=== PATIENT | male | born 1980 | race Caucasian/White ===

== ENCOUNTER 2017-06-27 07:10 | Day surgery (SDC) | payer OTHER ==
[2017-06-22 10:08] VITALS: BMI 22.0
[~2017-06-27 07:10] MED LIST: DEXAMETHASONE SOD PHOSPHATE 10 MG/ML 1 ML VIAL IV ONE; HEPARIN SODIUM,PORCINE 5,000 UNIT/ML 1 ML VIAL SQ ONE; HYDROmorphone 0.5 MG/0.5 ML SYRINGE IVP PRN; LACTATED RINGERS 1,000 ML IV SCH; LIDOCAINE 1% 20 ML VIAL (10MG/ML) FOR IV START INTRADERMA PRN; Pre Op ABX Message 1 EACH MISC MISCELLANE ONE
[2017-06-27] MEDS ORDERED: LIDOCAINE 1% 20 ML VIAL (10MG/ML) FOR IV START INTRADERMA ONE (08:32)
[2017-06-27] MEDS ORDERED: ONDANSETRON 4 MG/2 ML VIAL IVP ONE (08:35)
[2017-06-27] MEDS ORDERED: PROPOFOL 10 MG/ML 20 ML VIAL IV ONE (09:38)
[2017-06-27] MEDS ORDERED: LIDOCAINE 1% INJ 10MG/ML (20 ML MDV) ONE (09:38)
[2017-06-27] MEDS ORDERED: fentaNYL (PF) 50 MCG/ML 2 ML AMP ONE (09:38)
[2017-06-27] MEDS ORDERED: BUPIVACAINE (PF) 0.25% 30 ML VIAL SQ ONE ×2 (09:55)
[2017-06-27] MEDS ORDERED: NALOXONE 0.4 MG/ML 1 ML VIAL IV PRN (10:20)
[2017-06-27] MEDS ORDERED: traMADol 50 MG TAB PO PRN (10:20)
--- NOTE | 2017-06-27 10:23 | P.OP ---
Date of Procedure: 06/27/17 Procedure(s) Performed: PREOPERATIVE DIAGNOSIS: Back lipoma POSTOPERATIVE DIAGNOSIS: Same PROCEDURE: Excision back lipoma SURGEON: Rolf EBL: Minimal ANESTHESIA: General COMPLICATIONS: None OPERATIVE PROCEDURE: Patient was placed under general anesthesia and then placed in the right decubitus position. A horizontal incision was made in the left paraspinal location overlying the palpable mass. Dissection through the subcutaneous tissues took place using electrocautery. The lipomatous mass was identified and fully excised with the use of blunt dissection and cautery. This measured 5 x 4 cm in size. Subcutaneous tissues were then closed using 3- 0 Vicryl sutures and the skin using 4-0 Monocryl sutures. Steri-Strips and sterile dressings were applied. DISPOSITION: Stable to recovery room
[2017-06-27 10:30] VITALS: TEMP 97.8
[2017-06-27 12:07] VITALS: BP 109/66; PULSE 49; RESP 18
== END 2017-06-27 12:40 | disposition home or self-care (01) ==
LOC: OR 07:10
PROVIDERS: ATTEND Surgery
DX: D17.1 Benign lipomatous neoplasm of skin and subcutaneous tissue of trunk (principal); M79.89 Other specified soft tissue disorders; F17.200 Nicotine dependence, unspecified, uncomplicated; Z79.899 Other long term (current) drug therapy; Z79.2 Long term (current) use of antibiotics
CPT/HCPCS: 88304; 21931; J1644; J1100; J2405; J2001; J3010; J2704

== ENCOUNTER 2017-12-08 21:12 | Emergency (ER) | payer OTHER ==
[2017-12-08 21:26] VITALS: BP 131/93; PULSE 73; RESP 16; TEMP 98.6
--- NOTE | 2017-12-08 22:07 | ED ---
General Adult HPI - General Chief complaint: Dental/Oral Stated complaint: dental pain Time Seen by Provider: 12/08/17 21:48 Source: patient Mode of arrival: ambulatory Limitations: no limitations - History of Present Illness Initial comments: 37-year-old male presents to the emergency department for chief complaint of tooth pain. Patient states the pain has been going on for about 4 hours. He states when he was at home it was shooting into his ear. Patient states he has had pain like this before on the other side. He last went to [facility] when this happened. Patient states the pain is better right at this moment. Patient denies any stiffness or soreness of the neck. Patient denies sore throat. No shortness of breath or chest pain. Patient denies fevers or chills. He states he does not notice swelling in his cheek. - Related Data Home Medications Medication Instructions Recorded Confirmed Amoxicillin 500 mg PO Q8H 06/22/17 06/27/17 Varenicline [Chantix] 1 mg PO BID 06/22/17 06/27/17 Previous Rx's Medication Instructions Recorded traMADol HCl [Ultram] 50 mg PO Q6H PRN #30 tab 06/27/17 Ibuprofen 600 mg PO Q6H PRN #30 tablet 12/08/17 Penicillin V Potassium [Pen Vee K] 500 mg PO Q6H 10 Days tablet 12/08/17 Allergies Allergy/AdvReac Type Severity Reaction Status Date / Time No Known Allergies Allergy Verified 12/08/17 21:26 Review of Systems ROS Statement: Those systems with pertinent positive or pertinent negative responses have been documented in the HPI. ROS Other: All systems not noted in ROS Statement are negative. Past Medical History Past Medical History: No Reported History Additional Past Medical History / Comment(s): placed on antibiotics for tooth pain to f/u with dentist History of Any Multi-Drug Resistant Organisms: None Reported Past Surgical History: No Surgical Hx Reported Past Anesthesia/Blood Transfusion Reactions: No Reported Reaction Additional Past Anesthesia/Blood Transfusion Reaction / Comment(s): no previous anesthesia Past Psychological History: No Psychological Hx Reported Smoking Status: Current every day smoker - Past Family History Mother Family Medical History: Unable to Obtain Additional Family Medical History / Comment(s): pt is adopted General Exam Limitations: no limitations Head exam: Present: atraumatic, normocephalic, normal inspection ENT exam: Present: mucous membranes moist, TM's normal bilaterally, normal external ear exam. Absent: normal oropharynx (Patient has poor dental hygiene. Tapping the teeth 3 through 5 illicit pain. No abscess is noted.) Neck exam: Present: normal inspection. Absent: tenderness, meningismus, lymphadenopathy Respiratory exam: Present: normal lung sounds bilaterally. Absent: respiratory distress, wheezes, rales, rhonchi, stridor Cardiovascular Exam: Present: regular rate, normal rhythm, normal heart sounds. Absent: systolic murmur, diastolic murmur, rubs, gallop, clicks Course Vital Signs 12/08/17 21:23 Temperature 98.6 F Pulse Rate 73 Respiratory 16 Rate Blood Pressure 131/93 O2 Sat by Pulse 99 Oximetry Medical Decision Making - Medical Decision Making 37-year-old male presents to the emergency department for right side tooth pain for the past 4 hours. Patient has had similar pain on the opposite side of the mouth before was seen at [facility] for a period. Exam shows that tapping of the teeth 3 through 5 illicit pain. Patient describes the pain as a sharp shooting pain that is irritated by high and cold liquids. He says the pain is actually a lot better now than when he came to the emergency department. Patient states he does not want narcotics and would rather stick with ibuprofen. Patient states he is aware of [facility] but would rather go to [facility]. He is recommended to follow up there within 1-2 days. He is advised to take his course of antibiotics as directed. He asked if I could prescribe ibuprofen because his insurance will cover the prescription and he doesn't have any at home. He doesn't have the funds to purchase ibuprofen at the moment he states. He will return to the emergency Department if pain worsens or if he notices the infection spreading. Disposition Clinical Impression: Tooth pain Disposition: HOME SELF-CARE Condition: Good Instructions: Dental Abscess (ED), Toothache (ED) Additional Instructions: Please follow up with a dentist in 1 to 2 days. Please take entire course of antibiotics as directed. Please use ibuprofen for pain relief as needed. If symptoms worsen or you notice the infection spreading please return to the emergency department. Prescriptions: Ibuprofen 600 mg PO Q6H PRN #30 tablet PRN Reason: Pain Penicillin V Potassium [Pen Vee K] 500 mg PO Q6H 10 Days tablet Referrals: Goran Rodriguez MD [Primary Care Provider] - 1-2 days Time of Disposition: 22:03
== END 2017-12-08 22:12 | disposition home or self-care (01) ==
LOC: EC 21:12
DX: K08.89 Other specified disorders of teeth and supporting structures (principal); F17.200 Nicotine dependence, unspecified, uncomplicated; Z79.899 Other long term (current) drug therapy
CPT/HCPCS: 99282

== ENCOUNTER 2025-01-20 06:51 | Emergency (ER) | payer OTHER, BC ==
[2025-01-20 06:59] VITALS: RESP 18
--- NOTE | 2025-01-20 07:14 | ED ---
Abdominal Pain HPI - General Chief Complaint: Abdominal Pain Stated Complaint: abd pain Time Seen by Provider: 01/20/25 06:54 Source: patient, RN notes reviewed Mode of arrival: ambulatory - History of Present Illness Initial Comments: 44-year-old male presents emergency department with chief complaint of bilateral flank pain, urinary issues. Patient states he has some achy discomfort bilateral flank regions states that he noticed last night that his urine was much trickling usual states it is persistently foamy, something like he is never had before he denies any dysuria denies any penile drainage no fevers or chills no blood in his urine noted. Patient offers no complaints. - Related Data Home Medications Medication Instructions Recorded Confirmed Amoxicillin 500 mg PO Q8H 06/22/17 06/27/17 Varenicline [Chantix] 1 mg PO BID 06/22/17 06/27/17 Previous Rx's Medication Instructions Recorded traMADol HCl [Ultram] 50 mg PO Q6H PRN #30 tab 06/27/17 Ibuprofen 600 mg PO Q6H PRN #30 tablet 12/08/17 Penicillin V Potassium [Pen Vee K] 500 mg PO Q6H 10 Days tablet 12/08/17 Allergies Allergy/AdvReac Type Severity Reaction Status Date / Time No Known Allergies Allergy Verified 01/20/25 06:59 Review of Systems ROS Statement: Those systems with pertinent positive or pertinent negative responses have been documented in the HPI. ROS Other: All systems not noted in ROS Statement are negative. Past Medical History Past Medical History: No Reported History Additional Past Medical History / Comment(s): placed on antibiotics for tooth pain to f/u with dentist History of Any Multi-Drug Resistant Organisms: None Reported Past Surgical History: No Surgical Hx Reported Past Anesthesia/Blood Transfusion Reactions: No Reported Reaction Additional Past Anesthesia/Blood Transfusion Reaction / Comment(s): no previous anesthesia Past Psychological History: No Psychological Hx Reported Past Alcohol Use History: Rare Past Drug Use History: None Reported - Past Family History Mother Family Medical History: Unable to Obtain Additional Family Medical History / Comment(s): pt is adopted General Exam Limitations: no limitations General appearance: alert, in no apparent distress Head exam: Present: atraumatic, normocephalic, normal inspection Eye exam: Present: normal appearance, PERRL, EOMI. Absent: scleral icterus, conjunctival injection, periorbital swelling ENT exam: Present: normal exam, normal oropharynx, mucous membranes moist Neck exam: Present: normal inspection, full ROM. Absent: tenderness, meningismus, lymphadenopathy Respiratory exam: Present: normal lung sounds bilaterally. Absent: respiratory distress, wheezes, rales, rhonchi, stridor Cardiovascular Exam: Present: regular rate, normal rhythm, normal heart sounds. Absent: systolic murmur, diastolic murmur, rubs, gallop, clicks GI/Abdominal exam: Present: soft, normal bowel sounds. Absent: distended, tenderness, guarding, rebound, rigid Back exam: Absent: CVA tenderness (R), CVA tenderness (L) Course Vital Signs 01/20/25 06:54 Temperature 97.9 F Pulse Rate 65 Respiratory 18 Rate Blood Pressure 139/87 O2 Sat by Pulse 98 Oximetry Medical Decision Making - Medical Decision Making Was pt. sent in by a medical professional or institution (, PA, SENIOR JAVA WEB APPLICATION DEVELOPER, urgent care, hospital, or fpc...) When possible be specific @ -No Did you speak to anyone other than the patient for history (EMS, parent, family, police, friend...)? What history was obtained from this source @ -No Did you review nursing and triage notes (agree or disagree)? Why? @ -I reviewed and agree with nursing and triage notes Were old charts reviewed (outside hosp., previous admission, EMS record, old EKG, old radiological studies, urgent care reports/EKG's, fpc records)? Report findings @ -No old charts were reviewed Differential Diagnosis (chest pain, altered mental status, abdominal pain women, abdominal pain men, vaginal bleeding, weakness, fever, dyspnea, syncope, headache, dizziness, GI bleed, back pain, seizure, CVA, palpatations, mental health, musculoskeletal)? @Differential Abdominal Pain Men: Appendicitis, cholecystitis, diverticulosis, ischemic bowel, pancreatitis, hepatitis, UTI, gastroenteritis, AAA, incarcerated hernia, bowel obstruction, constipation, inflammatory bowel, hepatitis, peptic ulcer disease, splenic infarction, perforated viscus, testicular torsion, this is not meant to be an al l-inclusive list EKG interpreted by me (3pts min.). @ -None X-rays interpreted by me (1pt min.). @ -None done CT interpreted by me (1pt min.). @ -CT of the abdomen pelvis showing no evidence renal mass, bladder mass, renal stone or ureteral calculi U/S interpreted by me (1pt. min.). @ -None done What testing was considered but not performed or refused? (CT, X-rays, U/S, labs)? Why? @ -None What meds were considered but not given or refused? Why? @ -None Did you discuss the management of the patient with other professionals (professionals i.e. Dr., PA, SENIOR JAVA WE[employer] APPLICATION DEVELOPER, lab, RT, psych nurse, social security specialist, database reporting consultant, teacher, chief accounting officer, case management coordinator)? Give summary @ -No Was smoking cessation discussed for >3mins.? @ -No Was critical care preformed (if so, how long)? @ -No Were there social determinants of health that impacted care today? How? (Homelessness, low income, unemployed, alcoholism, drug addiction, transportation, low edu. Level, literacy, decrease access to med. care, group home, rehab)? @ -No Was there de-escalation of care discussed even if they declined (Discuss DNR or withdrawal of care, Hospice)? DNR status @ -No What co-morbidities impacted this encounter? (DM, HTN, Smoking, COPD, CAD, Cancer, CVA, ARF, Chemo, Hep., AIDS, mental health diagnosis, sleep apnea, morbid obesity)? @ -None Was patient admitted / discharged? Hospital course, mention meds given and route, prescriptions, significant lab abnormalities, going to OR and other pertinent info. @ -Charged patient presented for flank pain, change in urination patient did have notable hematuria on urinalysis CT was unremarkable. Patient will be discharged in stable condition follow-up with urology return presents Undiagnosed new problem with uncertain prognosis? @ -No Drug Therapy requiring intensive monitoring for toxicity (Heparin, Nitro, Insulin, Cardizem)? @ -No Were any procedures done? @ -No Diagnosis/symptom? @ -Hematuria flank pain Acute, or Chronic, or Acute on Chronic? @ -Acute Uncomplicated (without systemic symptoms) or Complicated (systemic symptoms)? @ -uncomplicated Side effects of treatment? @ -No Exacerbation, Progression, or Severe Exacerbation? @ -No Poses a threat to life or bodily function? How? (Chest pain, [place], [place], pneumonia, PE, COPD, DKA, ARF, appy, cholecystitis, CVA, Diverticulitis, Homicidal, Suicidal, threat to staff... and all critical care pts) @ -No - Lab Data Result diagrams: 01/20/25 07:13 01/20/25 07:13 Lab Results 01/20/25 01/20/25 01/20/25 Range/Units 07:13 07:13 07:21 WBC 6.88 (4.50-10.00) 10*3/uL RBC 4.91 (4.40-5.60) 10*6/uL Hgb 14.7 (13.0-17.0) g/dL Hct 43.1 (39.6-50.0) % MCV 87.8 (80.0-97.0) fL MCH 29.9 (27.0-32.0) pg MCHC 34.1 (32.0-37.0) g/dL Plt Count 237 (140-440) 10*3/uL MPV 10.9 (9.5-12.2) fL Immature Gran % (Auto) 0.3 % Neutrophils % 57.2 % Lymphocytes % 34.6 % Monocytes % 6.3 % Eosinophils % 1.2 % Basophils % 0.4 % Immature Gran # 0.02 (0.00-0.04) 10*3/uL Neutrophils # 3.94 (1.80-7.70) 10*3/uL Lymphocytes # 2.38 (0.90-5.00) 10*3/uL Monocytes # 0.43 (0.20-1.00) 10*3/uL Eosinophils # 0.08 (0.04-0.35) 10*3/uL Basophils # 0.03 (0.00-0.10) 10*3/uL Sodium 137 (137-145) mmol/L Potassium 4.1 (3.5-5.1) mmol/L Chloride 102 (98-107) mmol/L Carbon Dioxide 26 (22-30) mmol/L Anion Gap 9 mmol/L BUN 16 (9-20) mg/dL Creatinine 0.94 (0.66-1.25) mg/dL Est GFR (CKD-EPI)AfAm >90 (>60 ml/min/1.73 sqM) Est GFR (CKD-EPI)NonAf >90 (>60 ml/min/1.73 sqM) Glucose 106 H (74-99) mg/dL Calcium 9.5 (8.4-10.2) mg/dL Total Bilirubin 1.3 (0.2-1.3) mg/dL AST 35 (17-59) U/L ALT 37 (4-49) U/L Alkaline Phosphatase 67 (38-126) U/L Total Protein 7.5 (6.3-8.2) g/dL Albumin 4.6 (3.5-5.0) g/dL Urine Color Light Yellow Urine Appearance Clear (Clear) Urine pH 5.5 (5.0-8.0) Ur Specific [place] 1.016 (1.001-1.035) Urine Protein Negative (Negative) Urine Glucose (UA) Negative (Negative) Urine Ketones Negative (Negative) Urine Blood Small H (Negative) Urine Nitrite Negative (Negative) Urine Bilirubin Negative (Negative) Urine Urobilinogen <2.0 (<2.0) mg/dL Ur Leukocyte Esterase Negative (Negative) Urine RBC 2 (0-5) /hpf Urine WBC 1 (0-5) /hpf Urine Mucus Rare H (None) /hpf Disposition Clinical Impression: Abdominal pain, Hematuria Disposition: HOME SELF-CARE Condition: Stable Instructions (If sedation given, give patient instructions): Hematuria (ED) Additional Instructions: Please return to the Emergency Department if symptoms worsen or any other concerns. Is patient prescribed a controlled substance at d/c from ED?: No Referrals: [facility] [NON-STAFF] - 1-2 days (Clinic for [facility] residents with no insurance or who are under insured. ) Goyo Justice MD [STAFF PHYSICIAN] - 1-2 days Forms: Area PCPs Time of Disposition: 09:44
[2025-01-20] MEDS: SODIUM CHLORIDE 0.9% 1,000 ML IV ONE (07:17)
[2025-01-20 07:36] LABS: Basophils # (A) 0.03 10*3/uL (0.00-0.10); Basophils % (A) 0.4 %; Eosinophils # (A) 0.08 10*3/uL (0.04-0.35); Eosinophils % (A) 1.2 %; HCT 43.1 % (39.6-50.0); HGB 14.7 g/dL (13.0-17.0); Lymphocytes # (A) 2.38 10*3/uL (0.90-5.00); Lymphocytes % (A) 34.6 %; MCH 29.9 pg (27.0-32.0); MCHC 34.1 g/dL (32.0-37.0); MCV 87.8 fL (80.0-97.0); Mean Platelet Volume 10.9 fL (9.5-12.2); Monocytes # (A) 0.43 10*3/uL (0.20-1.00); Monocytes % (A) 6.3 %; Neutrophils # (A) 3.94 10*3/uL (1.80-7.70); Neutrophils % (A) 57.2 %; Platelet Count 237 10*3/uL (140-440); RBC 4.91 10*6/uL (4.40-5.60); RDW 12.3 % (11.5-14.5); WBC 6.88 10*3/uL (4.50-10.00)
[2025-01-20 07:41] LABS: Appearance,Urine Clear (Clear); Bilirubin,Urine Negative (Negative); Blood,Urine Small (Negative); Color,Urine Light Yellow; Glucose,Urine (UA) Negative (Negative); Ketones,Urine Negative (Negative); Leukocyte Esterase,Urine Negative (Negative); Mucus,Urine Rare /hpf; Nitrite,Urine Negative (Negative); PH, Urine 5.5 (5.0-8.0); Protein,Urine Negative (Negative); RBC,Urine 2 /hpf (0-5); Specific Gravity,Urine 1.016 (1.001-1.035); Urobilinogen,Urine <2.0 mg/dL (<2.0); WBC,Urine 1 /hpf (0-5)
[2025-01-20 07:45] LABS: ALT 37 U/L (4-49); AST 35 U/L (17-59); African American GFR (CKD) >90 (>60 ml/min/1.73 sqM); Albumin 4.6 g/dL (3.5-5.0); Alkaline Phosphatase 67 U/L (38-126); Anion Gap 9 mmol/L; Blood Urea Nitrogen 16 mg/dL (9-20); Calcium 9.5 mg/dL (8.4-10.2); Carbon Dioxide 26 mmol/L (22-30); Chloride 102 mmol/L (98-107); Glucose 106 mg/dL (74-99); Non-African American GFR(CKD) >90 (>60 ml/min/1.73 sqM); Potassium 4.1 mmol/L (3.5-5.1); Sodium 137 mmol/L (137-145); Total Bilirubin 1.3 mg/dL (0.2-1.3); Total Protein 7.5 g/dL (6.3-8.2)
--- NOTE | 2025-01-20 09:11 | CT ---
EXAMINATION TYPE: CT abdomen pelvis wo con DATE OF EXAM: 01/20/2025 8:38 AM COMPARISON: None. CLINICAL INDICATION: Male, 44 years old with history of Hematuria; TECHNIQUE: CT of the abdomen and pelvis without contrast. Coronal and sagittal reconstructions perfor med. CT DLP: 494 mGycm, Automated exposure control for dose reduction was used. FINDINGS: LOWER CHEST: Unremarkable ABDOMEN LIVER: Unremarkable GALLBLADDER AND BILE DUCTS: Unremarkable. PANCREAS: Unremarkable. SPLEEN: Unremarkable with a hilar splenule. ADRENAL GLANDS: Unremarkable. KIDNEYS AND URETERS: No nephrolithiasis or hydronephrosis is seen. PELVIS BLADDER: No evidence for wall thickening or mass given limitations of exam. REPRODUCTIVE: Borderline size prostate gland at 4.0 cm wide. A few pelvic phleboliths are noted. ABDOMEN & PELVIS STOMACH AND BOWEL: No evidence of bowel obstruction. Circumferential wall thickening at the hepatic f lexure of the colon, axial image 51 may be due to nondistention. There is scattered mild to moderate stool elsewhere throughout the colon. Normal appendix. Mild left-sided colonic diverticulosis. PERITONEUM/RETROPERITONEUM: No evidence of pneumoperitoneum or free fluid. VASCULATURE: No evidence of aortic aneurysm. MUSCULOSKELETAL: Mild degenerative change of both hips. Moderate degenerative disc disease L4-L5 and L5-S1. LYMPH NODES: No gross evidence for lymphadenopathy. SOFT TISSUE/ABDOMINAL WALL: Unremarkable IMPRESSION: 1. No nephrolithiasis or hydronephrosis seen. 2. Borderline prostatomegaly at 4.0 cm wide. Correlate with patient's symptoms and PSA values. 3. Mild circumferential wall thickening at the hepatic flexure of the colon may be due to nondistenti on or a mild localized colitis. Clinically correlate. 4. Mild sigmoid diverticulosis without acute diverticulitis. [facility], , 01/20/2025 9:09 AM
[2025-01-20 10:09] VITALS: PULSE 62
[2025-01-20 10:12] VITALS: BP 128/79; TEMP 98.2
== END 2025-01-20 10:11 | disposition home or self-care (01) ==
LOC: EC 06:51
DX: R31.9 Hematuria, unspecified (principal); R10.9 Unspecified abdominal pain
CPT/HCPCS: 36415; 74176; 80053; 81001; 85025; 96360; 99284